=== PATIENT | male | born 1950 | race Caucasian/White ===

== ENCOUNTER 2017-10-16 08:00 | Inpatient (IN) | payer OTHER ==
[~2017-10-16] VITALS: Ht 167.6 cm; Wt 83.0 kg
[2017-10-16] MEDS ORDERED: TRAMADOL HCL50 MG PO (10:23)
[2017-10-16] MEDS ORDERED: SIMVASTATIN20 MG PO (10:24)
[2017-10-16] MEDS ORDERED: CYCLOBENZAPRINE10 MG PO (10:24)
[2017-10-16] MEDS ORDERED: ENALAPRIL MALEAT5 MG PO (10:25)
[2017-10-16] MEDS ORDERED: GLUCOPHAGE XR500 MG PO (10:25)
[2017-10-16] MEDS ORDERED: METFORMIN HCL500 MG PO (10:25)
[2017-10-16] MEDS ORDERED: CENTRUM SILVER1 EAC2 PO (10:26)
[2017-10-25] MEDS ORDERED: XARELTO10 MG PO (16:28)
[2017-10-25] MEDS ORDERED: DUI500 PO (16:28)
[2017-10-25] MEDS ORDERED: PERCOCET 5-3251 EACH PO (16:28)
== END 2017-10-25 21:55 | DRG 470 ==
LOC: SURG 10-23 05:39 → O/R 10-23 05:39 → SURH 10-23 08:00 → SURG 10-23 15:18
PROVIDERS: Orthopaedic Surgery
PROC: 0QND0ZZ Release Right Patella, Open Approach (ICD-10-PCS; 2017-10-23)
PROC: 0SRC0J9 Replacement of Right Knee Joint with Synthetic Substitute, Cemented, Open Approach (ICD-10-PCS; principal; 2017-10-23 10:15)
DX: M17.11 Unilateral primary osteoarthritis, right knee (principal); D62 Acute posthemorrhagic anemia; E11.9 Type 2 diabetes mellitus without complications; I10 Essential (primary) hypertension; M22.11 Recurrent subluxation of patella, right knee

== ENCOUNTER 2017-10-22 14:05 | Outpatient (CLI) | payer OTHER ==
[~2017-10-22 14:05] MED LIST: CENTRUM SILVER1 EAC2 PO; CYCLOBENZAPRINE10 MG PO; ENALAPRIL MALEAT5 MG PO; GLUCOPHAGE XR500 MG PO; METFORMIN HCL500 MG PO; SIMVASTATIN20 MG PO; TRAMADOL HCL50 MG PO
== END 2017-10-22 14:10 | disposition home or self-care (01) ==
LOC: EKG 14:05
DX: I10 Essential (primary) hypertension (principal)